=== PATIENT | male | born 1995 | race Caucasian/White ===

== ENCOUNTER 2024-05-11 15:46 | Emergency (ER) | payer OTHER, SELFPAY ==
[2024-05-11 15:52] VITALS: BP 148/81; PULSE 64; TEMP 36.7; O2SAT 100; BMI 25.1
--- NOTE | 2024-05-11 15:59 | XR_ITS ---
[address] [address] Patient Name: LANA HERNANDEZ MRN: [id number] date: 1995 Sex: M Assigned Patient Location: ER Current Patient Location: ED.MAIN Accession/Order Number: [id number] Exam Date: 05/11/2024 16:15 Report Date: 05/11/2024 17:06 At the request of: JUANA CARCAMO Procedure: XR lumbar spine 2-3V EXAMINATION: XR lumbar spine 2-3V, , 05/11/2024 4:15 PM EDT INDICATION: Low back pain HISTORY: Ordering Provider Reason for Exam: Low back pain Technologist Note: Additional: COMPARISON: None. TECHNIQUE: Lumbar spine x-ray: 3 view(s). FINDINGS: No acute fracture or traumatic malalignment. Normal lumbar lordosis. No listhesis. No abnormal curvature. Vertebral body heights are normal. Disc heights are maintained. Visualized soft tissues are unremarkable. XR/XR lumbar spine 2-3V IMPRESSION: No acute fracture or traumatic malalignment. Electronically authenticated by: ALFONZO LENNON Date: 05/11/2024 17:06
--- NOTE | 2024-05-11 16:00 | ED_ITS ---
HPI HPI - General Adult General Chief complaint: Back Pain/Injury Stated complaint: BACK PAIN Time Seen by Provider: 05/11/24 15:52 Source: patient Mode of arrival: walk-in Limitations: no limitations History of Present Illness HPI narrative: Patient is a 28-year-old male who presents to the emergency department for low back pain. He states he was lifting earlier when he felt a pull in the left low back. He lifted again and now states that he feels like his back is locked up. He reports spasms to the left low back. No pain radiation or numbness or tingling to the extremities. He denies any urine or stool incontinence. He took ibuprofen earlier today. No falls or direct injuries. Related Data Previous Rx's ?Medication ?Instructions ?Recorded ketorolac 10 mg tablet 10 mg PO TID PRN pain #10 tabs 05/11/24 methocarbamol 750 mg tablet 750 mg PO TID PRN pain #20 tabs 05/11/24 methylprednisolone 4 mg tablets in See Rx Instructions .Route 05/11/24 a dose pack (Medrol (Jona)) .COMPLEX #21 ea Allergies Allergy/AdvReac Type Severity Reaction Status Date / Time No Known Drug Allergies Allergy Verified 05/11/24 15:51 Opioid HPI Opioid Management Most Recent Opioid Data: Last Pain Scale 8 05/11/24 16:51 Last ED Pain Assessment 05/11/24 16:51 Last MAR Pain Assessment 05/11/24 16:34 Review of Systems ROS Constitutional Denies: fever or chills Ears, nose, mouth, and throat Denies: throat pain or nasal congestion Cardiovascular Denies: chest pain Respiratory Denies: shortness of breath Gastrointestinal Denies: abdominal pain, nausea or vomiting Genitourinary Denies: painful urination Musculoskeletal Reports: back pain; Denies: neck pain, extremity pain or extremity swelling Integumentary/Breast Denies: rash Hematologic/Lymphatic Denies: easy bruising or easy bleeding Exam Narrative Exam Narrative: Gen.: Awake, alert, in no distress Head: Normocephalic, atraumatic ENT: Moist mucous membranes Respiratory: No respiratory distress Back: No bony point tenderness of the T-spine or L-spine with diffuse tenderness of the left low back, paraspinal muscles of the lumbar spine and superior posterior hip. No obvious deformity or step-off of the spine. Extremities: Moves extremities equally, no injuries noted; normal dorsiflexion and plantarflexion of the lower extremities, no decrease in sensation to the medial thighs Psych: Normal mood and affect Neuro: No focal neuro deficit Skin: Warm, dry, intact Constitutional Vital Signs, click to edit/add: Last Vital Signs Temp 98.1 F 05/11/24 15:52 Pulse 64 05/11/24 15:52 Resp 16 05/11/24 15:52 BP 148/81 H 05/11/24 15:52 Pulse Ox 100 05/11/24 15:52 O2 Del Method Room Air 05/11/24 15:52 Course Vital Signs Vital signs: Vital Signs Temperature 98.1 F 05/11/24 15:52 Pulse Rate 64 05/11/24 15:52 Respiratory Rate 16 05/11/24 15:52 Blood Pressure 148/81 H 05/11/24 15:52 Pulse Oximetry 100 05/11/24 15:52 Oxygen Delivery Method Room Air 05/11/24 15:52 Temperature 98.1 F 05/11/24 15:52 Pulse Rate 64 05/11/24 15:52 Respiratory Rate 16 05/11/24 15:52 Blood Pressure 148/81 H 05/11/24 15:52 Pulse Oximetry 100 05/11/24 15:52 Oxygen Delivery Method Room Air 05/11/24 15:52 Medical Decision Making MDM Narrative Medical decision making narrative: X-rays of the lumbar spine are unremarkable, read by the radiologist. Patient treated for symptoms in the ER and discharged home with prescriptions for pain. He is neurovascularly intact at discharge. Rest, ice, gentle stretching SUPERVISED APC VISIT, PHYSICIAN ATTESTATION: Based on the medical record the care appears appropriate. ? Medical Records Medical records reviewed: Yes I reviewed the patient's medical records Imaging Data XR lumbar: Attestation: I have reviewed the pertinent imaging results. Radiologist's impression: ITS Impressions Lumbar Spine X-Ray 05/11/24 15:59 IMPRESSION: No acute fracture or traumatic malalignment. Electronically authenticated by: ALFONZO LENNON Date: 05/11/2024 17:06 Discharge Plan Discharge Stand Alone Forms: Portal Instructions Chief Complaint: Back Pain/Injury Clinical Impression: Strain of lumbar region Patient Disposition: Home, Self-Care Time of Disposition Decision: 17:16 Condition: Good Prescriptions / Home Meds: New ketorolac 10 mg tablet 10 mg PO TID PRN (Reason: pain) Qty: 10 0RF methocarbamol 750 mg tablet 750 mg PO TID PRN (Reason: pain) Qty: 20 0RF methylprednisolone [Medrol (Jona)] 4 mg tablets,dose pack See Rx Instructions .ROUTE .COMPLEX Qty: 21 0RF Rx Instructions: Taper as directed Print Language: Finnish Instructions: Low Back Strain (ED) Referrals: Physician,Non-Staff, MD [Primary Care Provider] - 1 week
[2024-05-11] MEDS: HYDROCODONE/ACET 5-325 MG TABLET 1 TAB PO (16:32)
[2024-05-11] MEDS: ORPHENADRINE 60 MG/ 2 ML VIAL IM (16:33)
[2024-05-11] MEDS: KETOROLAC TROMETHAMINE 60 MG/2 ML VIAL IM (16:34)
[2024-05-11 17:45] VITALS: BP 119/81; PULSE 67; O2SAT 100
== END 2024-05-11 17:57 | disposition home or self-care (01) ==
PROVIDERS: Emergency Provider Emergency Medicine Emergency Medical Services
DX: S39.012A Strain of muscle, fascia and tendon of lower back, initial encounter (principal); X50.9XXA Other and unspecified overexertion or strenuous movements or postures, initial encounter
CPT/HCPCS: 72100; 96372; 99284; J1885; J2360